=== PATIENT | female | born 1950 | race Caucasian/White ===

== ENCOUNTER → 2022-07-11 | Outpatient (CLI) | payer MEDICARE ==
[2022-07-11 16:35] LABS: ALT 12 U/L (8-44); AST 12 U/L (13-35); African American GFR (CKD) 53.7 (60.0-200.0); Albumin 3.9 g/dL (3.8-4.9); Albumin/Globulin Ratio 1.72 (1.60-3.17); Alkaline Phosphatase 68 U/L (41-126); BUN/Creat Ratio 15.51 Ratio (12.00-20.00); Blood Urea Nitrogen 18.3 mg/dL (9.0-27.0); Calcium 8.9 mg/dL (8.7-10.3); Carbon Dioxide 26.5 mmol/L (20.0-27.5); Chloride 104 mmol/L (96-109); Chol/HDL Ratio 3.65 Ratio; Globulin 2.3 g/dL (1.6-3.3); Glucose 159 mg/dL (70-110); LDL Cholesterol,Calculated 149.7 mg/dL (0.0-131.0); Non-African American GFR(CKD) 46.4 (60.0-200.0); Sodium 141 mmol/L (135-145); Total Protein 6.2 g/dL (6.2-8.2)
== END | disposition home or self-care (01) ==
LOC: LABWHC1 09:57
PROVIDERS: ATTEND Internal Medicine Endocrinology, Diabetes & Metabolism
DX: C73 Malignant neoplasm of thyroid gland (principal); E11.65 Type 2 diabetes mellitus with hyperglycemia
CPT/HCPCS: 36415; 80053; 80061; 82043; 82570; 83036; 84432; 84443; 86800

== ENCOUNTER → 2024-09-05 | Day surgery (SDC) | payer MEDICARE ==
[2024-09-01 15:15] VITALS: BMI 31.1
[~2024-09-05] MED LIST: LIDOCAINE 1% (10MG/ML) FOR IV START INTRADERMA PRN; LIDOCAINE 1% INJ 10MG/ML (20 ML MDV) ONE; PROPOFOL 10 MG/ML 20 ML VIAL IV ONE
[2024-09-05] MEDS: IV FLUID CONTINUATION 1,000 ML IV ONE ×2 (08:00)
[2024-09-05 08:06] VITALS: TEMP 97.5
[2024-09-05 08:18] LABS: Glucose,Whole Blood 143 mg/dL (70-110)
[2024-09-05] MEDS: LACTATED RINGERS 1,000 ML IV SCH (08:18)
--- NOTE | 2024-09-05 08:52 | P.OP ---
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 She states that she has had some hoarseness and feelings of dysphagia. Plan is for upper endoscopy for further evaluation. Operative Findings: Appropriate GJ anastomosis. Jejunostomy with some inflammatory changes along with GE junction with inflammatory changes. Biopsies were taken. Description of Procedure: The patient was brought into the endoscopy suite and placed in left lateral decubitus position. Adequate sedation was achieved using conscious sedation. A bite-block was placed and an endoscope was placed in the oropharynx and advanced under endoscopic visualization. The endoscope was advanced through the esophagus into the stomach, and anastomosis of the GJ was visualized. No ulceration noted. Based on anatomy, this is the assumed previous surgical procedure. Jejunum with some inflammatory changes.. Biopsies were taken. GE junction revealed inflammatory changes and biopsies were taken. No hiatal hernia is obvious. The esophagus appeared endoscopically normal with no stricturing. Excess air was removed and the scope was withdrawn and the procedure was completed. The patient was sent to PACU in stable condition.
[2024-09-05 08:55] VITALS: RESP 16
[2024-09-05 09:06] VITALS: BP 113/57; PULSE 58
== END | disposition home or self-care (01) ==
LOC: ORWHC2ENDO 07:29
PROVIDERS: ATTEND Surgery
DX: K21.00 Gastro-esophageal reflux disease with esophagitis, without bleeding (principal); K22.10 Ulcer of esophagus without bleeding; K29.50 Unspecified chronic gastritis without bleeding; K31.9 Disease of stomach and duodenum, unspecified; K52.9 Noninfective gastroenteritis and colitis, unspecified; D72.10 Eosinophilia, unspecified; E11.9 Type 2 diabetes mellitus without complications; E78.5 Hyperlipidemia, unspecified; E89.0 Postprocedural hypothyroidism; F41.9 Anxiety disorder, unspecified; F32.A Depression, unspecified; Z79.85 Long-term (current) use of injectable non-insulin antidiabetic drugs; Z79.890 Hormone replacement therapy; Z79.899 Other long term (current) drug therapy; Z85.850 Personal history of malignant neoplasm of thyroid; Z85.828 Personal history of other malignant neoplasm of skin; Z98.84 Bariatric surgery status; Z88.2 Allergy status to sulfonamides; Z91.048 Other nonmedicinal substance allergy status
CPT/HCPCS: 43239; 88305; J2003; J2704